=== PATIENT | female | born 1980 | race Caucasian/White ===

== ENCOUNTER 2019-02-27 08:07 | Emergency (ER) | payer MEDICAID ==
[2019-02-27] MEDS: KETOROLAC 60 MG INJ IM (09:38)
== END 2019-02-27 13:56 | disposition home or self-care (01) ==
LOC: FTE 08:07
DX: S53.105A Unspecified dislocation of left ulnohumeral joint, initial encounter (principal); S09.90XA Unspecified injury of head, initial encounter; S00.12XA Contusion of left eyelid and periocular area, initial encounter; W10.8XXA Fall (on) (from) other stairs and steps, initial encounter; Y92.9 Unspecified place or not applicable
CPT/HCPCS: 29125; 70450; 73060; 73080-LT; 73090; 81025; 96372; 99285-25